=== PATIENT | female | born 1975 | race Caucasian/White ===

== ENCOUNTER → 2016-02-29 | Outpatient (CLI) | payer OTHER | LOC: GRHH 14:52 | DX: M00.272 Other streptococcal arthritis, left ankle and foot (principal); Z51.81 Encounter for therapeutic drug level monitoring; Z79.2 Long term (current) use of antibiotics ==

== ENCOUNTER → 2016-03-14 | Outpatient (CLI) | payer OTHER | LOC: GRHH 14:39 | PROVIDERS: ATTEND Specialist | DX: M00.272 Other streptococcal arthritis, left ankle and foot (principal); Z51.81 Encounter for therapeutic drug level monitoring; Z79.2 Long term (current) use of antibiotics ==

== ENCOUNTER → 2016-03-20 | Outpatient (CLI) | payer OTHER | END | disposition home or self-care (01) | LOC: GMA 14:54 | PROVIDERS: ATTEND Specialist | DX: Z51.81 Encounter for therapeutic drug level monitoring (principal); Z79.2 Long term (current) use of antibiotics; M00.272 Other streptococcal arthritis, left ankle and foot ==